=== PATIENT | male | born 1980 | race Caucasian/White ===

== ENCOUNTER 2023-01-17 11:42 | Emergency (ER) | payer SELFPAY ==
[~2023-01-17] VITALS: Ht 187 cm; Wt 120.0 kg
[~2023-01-17 11:42] MED LIST: ACET1TAB12; AGM875T; AMOX-355 PO; HYDR-34 PO
[2023-01-17] MEDS ORDERED: NITROGLYCERIN 0.4 MG SL TABLETS BTL 25'S SL PRN (12:00)
[2023-01-17] MEDS ORDERED: ASPIRIN 81 MG CHEWABLE TABLET PO ONE (12:00)
[2023-01-17 12:01] LABS: BASOPHILS # (AUTO) 0.1 10^3/uL (0.0-0.1); BASOPHILS % (AUTO) 1 % (0-10); EOSINOPHILS # (AUTO) 0.2 10^3/uL (0.0-0.3); EOSINOPHILS % (AUTO) 2 % (0-10); HEMATOCRIT 45 % (40-54); HEMOGLOBIN 15.1 g/dL (13.3-17.7); LYMPHOCYTES # (AUTO) 3.8 10^3/uL (1.0-4.0); LYMPHOCYTES % (AUTO) 31 % (12-44); MEAN CORPUSCULAR HEMOGLOBIN 29 pg (25-34); MEAN CORPUSCULAR HGB CONC 34 g/dL (32-36); MEAN CORPUSCULAR VOLUME 85 fL (80-99); MEAN PLATELET VOLUME 10.6 fL (9.0-12.2); MONOCYTES # (AUTO) 1.1 10^3/uL (0.0-1.0); MONOCYTES % (AUTO) 9 % (0-12); NEUTROPHILS # (AUTO) 7.1 10^3/uL (1.8-7.8); NEUTROPHILS % (AUTO) 57 % (42-75); PLATELET COUNT 286 10^3/uL (130-400); WHITE BLOOD COUNT 12.3 10^3/uL (4.3-11.0)
--- NOTE | 2023-01-17 12:02 | ED Chest Pain ---
General Chief Complaint: Chest Pain Stated Complaint: CHEST PAINS | LT ARM PAIN Nursing Triage Note: PT AMB TO RM 6 WITH C/O CP X1 HOUR. PT DESCRIBES THE PAIN SHARP AND RADIATES TO L SHOULDER Source: patient Exam Limitations: no limitations History of Present Illness Date Seen by Provider: Jan 17, 2023 Time Seen by Provider: 11:43 Initial Comments 42-year-old male presents to the ER with complaint of sudden onset sharp chest pain 45 minutes prior to arrival. Reports the pain is located in his entire left chest, from upper epigastric and midsternal region radiating to left shoulder and left upper arm. States that he was sitting on the bed, playing with his children when the pain started. Reports diffuse sweating and nausea with the pain. He reports some shortness of air, but states that he often has shortness of air due to his lower back pain, and states that he is uncertain if this is different. Reports that the pain has improved, but is still present. He states that he has been told that his he has high cholesterol and his blood pressure is always high when it is checked, but has not been started on medications for either of these. Denies history of diabetes. Reports that his mother has had multiple cardiac stents. He smokes approximately a pack a day for the last 20 years and smokes marijuana. Reports rare alcohol use. Blood pressure found to be significantly elevated, patient denies headache, blurry vision, dizziness. Does report some fogginess, thinks it is because he took his pain medications prior to arrival. Allergies and Home Medications Allergies Coded Allergies: No Known Drug Allergies (Unverified Allergy, Mild, 01/20/09) Patient Home Medication List Home Medication List Reviewed: Yes Acetaminophen With Codeine (Tylenol With Codeine #3 Tablet) 1 Each Tablet, (Reported) Entered as Reported by: NIK TUBBS on 01/20/092121 Amoxicillin/Clavulanate K (Augmentin 875-125 Tablet) 1 Tab Tablet, (Reported) Entered as Reported by: NIK TUBBS on 01/20/092121 Amoxicillin/Clavulanate K (Augmentin 500-125 Tablet) 1 Each Tablet, 1 EACH PO TID Prescribed by: JUDAH JIMÉNEZ MD on 06/18/09 1341 Atorvastatin Calcium (Atorvastatin Calcium) 40 Mg Tablet, 40 MG PO DAILY Prescribed by: Shira Mendez on 01/17/23 1450 Hydrocodone Bit/Acetaminophen (Lortab 7.5 Mg Tablet) 1 Ea Tablet, 1 EA PO Q 4 - 6 HR PRN Prescribed by: JUDAH JIMÉNEZ MD on 06/18/09 1341 Hydrocodone/Acetaminophen (Hydrocodone-Acetamin 7.5-325) 7.5 Mg-325 Mg Tablet, 1 EACH PO Q6H PRN for PAIN-BREAKTHROUGH Prescribed by: Shira Mendez on 01/17/23 1449 Lisinopril (Lisinopril) 10 Mg Tablet, 10 MG PO DAILY Prescribed by: Shira Mendez on 01/17/23 1456 Ondansetron (Ondansetron Odt) 4 Mg Tab.rapdis, 4 MG SL Q4H PRN for NAUSEA/VOMITING Prescribed by: Shira Mendez on 01/17/23 1449 Review of Systems Review of Systems Constitutional: see HPI Past Ygxgcow-Fxuiku-Mlgupx Hx Patient Social History Tobacco Use?: Yes Tobacco type used: Cigarettes Substance use?: Yes Substance type: Marijuana Alcohol Use?: Yes Alcohol Frequency: Rarely Pt feels they are or have been: No Past Medical History Surgery/Hospitalization HX: HTN, HLD, CHRONIC BACK PAIN Physical Exam Vital Signs Vital Signs - First Documented 01/17/23 01/17/23 11:43 15:04 Temp 35.6 Pulse 93 Resp 28 B/P (MAP) 155/110 Pulse Ox 99 Capillary Refill : Less Than 3 Seconds Height, Weight, BMI Height: '" Weight: lbs. oz. kg; 34.00 BMI Method: General Appearance: No Apparent Distress, WD/WN Neck: Normal Inspection, Supple Respiratory: Lungs Clear, Normal Breath Sounds, No Accessory Muscle Use, No Respiratory Distress Cardiovascular: Regular Rate, Rhythm Gastrointestinal: Non Tender, Soft Extremity: Normal Inspection, Normal Range of Motion Neurologic/Psychiatric: Alert, Normal Mood/Affect Skin: Normal Color, Warm/Dry Progress/Results/Core Measures Results/Orders Lab Results Laboratory Tests Test 01/17/23 11:46 01/17/23 14:05 Range/Units White Blood Count 12.3 H 4.3-11.0 10^3/uL Red Blood Count 5.24 4.30-5.52 10^6/uL Hemoglobin 15.1 13.3-17.7 g/dL Hematocrit 45 40-54 % Mean Corpuscular Volume 85 80-99 fL Mean Corpuscular Hemoglobin 29 25-34 pg Mean Corpuscular Hemoglobin Concent 34 32-36 g/dL Red Cell Distribution Width 13.2 10.0-14.5 % Platelet Count 286 130-400 10^3/uL Mean Platelet Volume 10.6 9.0-12.2 fL Immature Granulocyte % (Auto) 1 % Neutrophils (%) (Auto) 57 42-75 % Lymphocytes (%) (Auto) 31 12-44 % Monocytes (%) (Auto) 9 0-12 % Eosinophils (%) (Auto) 2 0-10 % Basophils (%) (Auto) 1 0-10 % Neutrophils # (Auto) 7.1 1.8-7.8 10^3/uL Lymphocytes # (Auto) 3.8 1.0-4.0 10^3/uL Monocytes # (Auto) 1.1 H 0.0-1.0 10^3/uL Eosinophils # (Auto) 0.2 0.0-0.3 10^3/uL Basophils # (Auto) 0.1 0.0-0.1 10^3/uL Immature Granulocyte # (Auto) 0.1 0.0-0.1 10^3/uL Prothrombin Time 14.2 12.2-14.7 SEC INR Comment 1.1 0.8-1.4 Activated Partial Thromboplast Time 32 24-35 SEC Sodium Level 143 135-145 MMOL/L Potassium Level 3.4 L 3.6-5.0 MMOL/L Chloride Level 106 98-107 MMOL/L Carbon Dioxide Level 23 21-32 MMOL/L Anion Gap 14 5-14 MMOL/L Blood Urea Nitrogen 9 7-18 MG/DL Creatinine 1.09 0.60-1.30 MG/DL Estimat Glomerular Filtration Rate 87 BUN/Creatinine Ratio 8 Glucose Level 106 H 70-105 MG/DL Calcium Level 9.4 8.5-10.1 MG/DL Corrected Calcium 9.1 8.5-10.1 MG/DL Magnesium Level 2.0 1.6-2.4 MG/DL Total Bilirubin 0.9 0.1-1.0 MG/DL Aspartate Amino Transf (AST/SGOT) 19 5-34 U/L Alanine Aminotransferase (ALT/SGPT) 30 0-55 U/L Alkaline Phosphatase 100 40-136 U/L Troponin I < 0.028 < 0.028 <0.028 NG/ML Total Protein 7.3 6.4-8.2 GM/DL Albumin 4.4 3.2-4.5 GM/DL Triglycerides Level 285 H <150 MG/DL Cholesterol Level 204 H < 200 MG/DL LDL Cholesterol Direct 159 H 1-129 MG/DL VLDL Cholesterol 57 H 5-40 MG/DL HDL Cholesterol 23 L 40-60 MG/DL Lipase 335 H 8-78 U/L My Orders Orders - SHIRA RUFF BUSINESS FUNCTIONAL ANALYST Cbc With Automated Diff (01/17/23 11:52) Magnesium (01/17/23 11:52) Chest 1 View, Ap/Pa Only (01/17/23 11:52) Comprehensive Metabolic Panel (01/17/23 11:52) Protime With Inr (01/17/23 11:52) Partial Thromboplastin Time (01/17/23 11:52) Monitor-Rhythm Ecg Trace Only (01/17/23 11:52) Ed Iv/Invasive Line Start (01/17/23 11:52) Troponin I Becky (01/17/23 11:52) Nitroglycerin 0.4 Mg Btl 25's (Nitroglyc (01/17/23 12:00) Aspirin Chewable Tablet (Aspirin Chewabl (01/17/23 12:00) Lipase (01/17/23 12:04) Lipid Panel (01/17/23 12:32) Troponin I Loíza (01/17/23 14:00) Medications Given in ED Vital Signs/I&O 01/17/23 01/17/23 11:43 15:04 Temp 35.6 Pulse 93 Resp 28 B/P (MAP) 155/110 Pulse Ox 99 Progress Progress Note : Progress Note Patient seen and evaluated, resting in bed, no acute distress. Based on exam and symptoms, differential diagnosis includes was not limited to DC, noncardiac chest pain, pneumonia, musculoskeletal pain, pancreatitis. Work-up initiated included CBC, CMP, coags, troponin, magnesium, chest x-ray, EKG. Aspirin and nitroglycerin ordered. 1320 labs and chest x-ray reviewed. CBC shows slightly elevated WBC 12.3. CMP shows slight decreased potassium 3.4. Troponin negative. Magnesium normal. Lipase elevated 335. Coags normal. Chest x-ray shows no acute cardiopulmonary process. Lipid panel was added on due to elevated lipase. Lipid panel shows elevated triglycerides 285, elevated total cholesterol 204, elevated LDL 159, decreased HDL 23. ASCVD risk calculator places patient at a 17% of cardiovascular event in the next 10 years. Patient will need to be started on a statin. Will repeat a 3-hour troponin. 1441 repeat troponin negative. Discussed admission for pancreatitis with patient. Patient states he would rather go home. Patient instructed to consume a clear liquid diet for the next 48 hours. Will discharge with prescription for pain medication and nausea medication. Will also start patient on atorvastatin and lisinopril for hyperlipidemia and hypertension. Patient instructed to follow-up with primary care provider in a couple days for repeat lipase check and to follow-up with primary care provider regarding hyperlipidemia and hypertension. Discharge instructions and return precautions provided. Initial ECG Impression Date: Jan 17, 2023 Initial ECG Impression Time: 11:45 Initial ECG Rhythm: Normal Sinus Initial ECG Intervals: ND (203) Initial ECG Impression: Nonspecific Changes Initial ECG Comparisson: No Previous ECG Available Comment ND interval slightly increased to 83. No significant Q waves, ST elevation, or T wave inversion. Diagnostic Imaging Diagonstic Imaging: Xray Plain Films/CT/US/NM/MRI: chest Comments [facility] [place], [place] NAME: BRENDON RENO [facility] REC#: [id number] PT STATUS: REG ER : 1980 PHYSICIAN: SHIRA RUFF APRN ADMIT DATE: 01/17/23/ER Draft Date of Exam:01/17/23 CHEST 1 VIEW, AP/PA ONLY EXAMINATION: Chest 1 view HISTORY: Chest pain. COMPARISON: None available. FINDINGS: The lung volumes are normal. No focal consolidation is seen. No large pleural effusion or pneumothorax is seen. The cardiomediastinal silhouette is normal in size and contour. No acute osseous abnormality is seen. IMPRESSION: No acute pleuroparenchymal process. Dictated on workstation # [id number] Dict: 01/17/23 1312 Trans: 01/17/23 1316 [id number] Interpreted by: HEVER AG DO Electronically signed by: Departure Impression Primary Impression: Pancreatitis Additional Impressions: Hyperlipidemia Hypertension Disposition: HOME, SELF-CARE Condition: Stable Departure-Patient Inst. Decision time for Depature: 14:41 Referrals: NO,LOCAL PHYSICIAN (PCP/Family) Primary Care Physician Patient Instructions: Clear Liquid Diet, Pancreatitis (DC) Add. Discharge Instructions: Take atorvastatin once a day as prescribed for your high cholesterol. Further refills will need to be prescribed by your primary care provider. If you develop generalized muscle pain, unusual fatigue, dark urine, you need to call your primary care provider. If you develop abdominal pain, yellow skin, yellow eyes, you need to follow-up with your primary care provider as well. Take Lodge as needed for pain. It may make you sleepy, and also can cause constipation. Take Zofran as needed for nausea vomiting. It can also cause constipation. You need to consume a clear liquid diet for the next 48 hours. Bowel rest is important to reduce the inflammation of your pancreas. I have attached information regarding what is allowed on a clear liquid diet. Call your primary care office today to schedule a follow-up appointment for this week to have a recheck of your lipase level. You also need to talk to your primary care provider regarding your high blood pressure. I am going to start you on lisinopril for hypertension. You need to see primary regarding further refills of this medication. If you develop swelli ng of your lips, tongue, throat, face, you need to stop taking and seek emergency treatment right away. Another side effect of lisinopril is a cough, this develops, see your primary care provider. Return for severe pain, recurrent vomiting, inability to keep food or drink down, or any other new, concerning, or worsening symptoms. All discharge instructions reviewed with patient and/or family. Voiced understanding. Scripts Lisinopril (Lisinopril) 10 Mg Tablet 10 MG PO DAILY for 30 Days, #30 TAB 0 Refills Prov: SHIRA RUFF BUSINESS FUNCTIONAL ANALYST 01/17/23 Atorvastatin Calcium (Atorvastatin Calcium) 40 Mg Tablet 40 MG PO DAILY for 30 Days, #30 TAB 0 Refills Prov: SHIRA RUFF BUSINESS FUNCTIONAL ANALYST 01/17/23 Ondansetron (Ondansetron Odt) 4 Mg Tab.rapdis 4 MG SL Q4H PRN for NAUSEA/VOMITING, #15 TAB 0 Refills Prov: SHIRA RUFF BUSINESS FUNCTIONAL ANALYST 01/17/23 Hydrocodone/Acetaminophen (Hydrocodone-Acetamin 7.5-325) 7.5 Mg-325 Mg Tablet 1 EACH PO Q6H PRN for PAIN-BREAKTHROUGH, #20 TAB 0 Refills Prov: SHIRA RUFF APRN 01/17/23 Copy Copies To 1: LILLY JIMENEZ MD Copies To 2: [facility] [place] [facility] [place] SHIRA RUFF APRN Jan 17, 2023 12:02
[2023-01-17 12:09] LABS: INR 1.1 (0.8-1.4); PROTHROMBIN TIME PATIENT 14.2 SEC (12.2-14.7)
[2023-01-17 12:20] LABS: ALANINE AMINOTRANSFERASE 30 U/L (0-55); ALBUMIN 4.4 GM/DL (3.2-4.5); ALKALINE PHOSPHATASE 100 U/L (40-136); BILIRUBIN,TOTAL 0.9 MG/DL (0.1-1.0); BUN/CREATININE RATIO 8; CALCIUM 9.4 MG/DL (8.5-10.1); CARBON DIOXIDE 23 MMOL/L (21-32); CHLORIDE 106 MMOL/L (98-107); CREATININE SERUM 1.09 MG/DL (0.60-1.30); GFR ESTIMATED 87; GLUCOSE 106 MG/DL (70-105); POTASSIUM 3.4 MMOL/L (3.6-5.0); SODIUM 143 MMOL/L (135-145); TOTAL PROTEIN 7.3 GM/DL (6.4-8.2)
[2023-01-17 12:49] LABS: CHOLESTEROL 204 MG/DL (< 200); HDL CHOLESTEROL 23 MG/DL (40-60); TRIGLYCERIDES 285 MG/DL (<150); VLDL CHOLESTEROL 57 MG/DL (5-40)
--- NOTE | 2023-01-17 13:16 | Diagnostic Imaging Report ---
EXAMINATION: Chest 1 view HISTORY: Chest pain. COMPARISON: None available. FINDINGS: The lung volumes are normal. No focal consolidation is seen. No large pleural effusion or pneumothorax is seen. The cardiomediastinal silhouette is normal in size and contour. No acute osseous abnormality is seen. IMPRESSION: No acute pleuroparenchymal process. Dictated by: Dictated on workstation # [id number]
[2023-01-17] MEDS ORDERED: HYDR-3817 PO (14:49)
[2023-01-17] MEDS ORDERED: ONDA4TAB11 SL (14:49)
[2023-01-17] MEDS ORDERED: ATOR40TA70 PO (14:50)
[2023-01-17] MEDS ORDERED: LISI10TA25 PO (14:56)
[2023-01-17 15:04] VITALS: BP 155/110
== END 2023-01-17 15:04 | disposition home or self-care (01) ==
LOC: EDUNIT# 11:42 → ER 11:43
DX: K85.90 Acute pancreatitis without necrosis or infection, unspecified (principal); I10 Essential (primary) hypertension; E78.5 Hyperlipidemia, unspecified; R11.0 Nausea; F17.210 Nicotine dependence, cigarettes, uncomplicated
CPT/HCPCS: 36415; 71045; 80053; 80061; 83690; 83735; 84484; 85025; 85610; 85730; 93005; 93041